=== PATIENT | male | born 1995 | race Caucasian/White ===

== ENCOUNTER → 2018-01-04 | Outpatient (CLI) | payer BC ==
[~2018-01-04] MED LIST: DOXY-252 PO; NYST15CR33 TP; TRIA15OI20 TP
[2018-01-04 14:09] LABS: PLATELET COUNT, AUTOMATED 166 K/uL (150-450)
== END ==
LOC: LAB 13:52
PROVIDERS: ATTEND Nurse Practitioner Primary Care
DX: R10.2 Pelvic and perineal pain (principal)
CPT/HCPCS: 36415; 81001; 82040; 82247; 82310; 82374; 82435; 82565; 82947; 84075; 84132; 84155; 84295; 84450; 84460; 84520; 85025

== ENCOUNTER → 2018-07-22 | Outpatient (CLI) | payer BC ==
[~2018-07-22] MED LIST changes: +PANT40TA65 PO
[2018-07-22 10:16] LABS: PLATELET COUNT, AUTOMATED 181 K/uL (150-450)
[2018-07-22 10:49] LABS: LDL CHOLESTEROL 107 mg/dl
== END ==
LOC: LAB 09:31
PROVIDERS: ATTEND Internal Medicine
DX: Z00.00 Encounter for general adult medical examination without abnormal findings (principal)
CPT/HCPCS: 36415; 81001; 82040; 82247; 82310; 82374; 82435; 82465; 82565; 82947; 83718; 84075; 84132; 84155; 84295; 84443; 84450; 84460; 84478; 84520; 85025

== ENCOUNTER → 2018-07-25 | Outpatient (CLI) | payer BC | LOC: LAB 13:50 | PROVIDERS: ATTEND Internal Medicine | DX: Z00.00 Encounter for general adult medical examination without abnormal findings (principal); R94.5 Abnormal results of liver function studies; K21.9 Gastro-esophageal reflux disease without esophagitis; D75.1 Secondary polycythemia | CPT/HCPCS: 36415; 80074; 81256; 82550; 82668; 82728; 82977; 83540; 83550; 86038; 86677 ==

== ENCOUNTER → 2018-08-10 | Outpatient (CLI) | payer BC ==
--- NOTE | 2018-08-10 09:09 | RADIOLOGY IMAGING REPORT ---
FACILITY: [facility] PATIENT NAME: Mario Blake : 1995 MR: [id number] V: [id number] EXAM DATE: ORDERING PHYSICIAN: TABBY ABEBE TECHNOLOGIST: Location: [facility] - [place] Patient: Mario Blake : 1995 Visit/Account:[id number] Date of Sevice: 08/10/2018 ULTRASOUND ABDOMEN COMPLETE COMPARISON: None. HISTORY: Gastroesophageal reflux disease, elevated liver function tests TECHNIQUE: Chen scale ultrasound of the abdomen was performed. FINDINGS: LIVER: Normal size, 15.4 cm craniocaudally, and morphology with normal homogeneous echotexture. No appreciable masses. A single color Doppler image demonstrates hepatopetal flow in the main portal v ein. GALLBLADDER: Normal size. No gallstones, wall thickening or pericholecystic fluid. Sonographic Mur phy's sign was reportedly negative. BILE DUCTS: No intrahepatic or extrahepatic bile duct dilatation. Common bile duct measures 3 mm. PANCREAS: Normal. KIDNEYS: Normal echogenicity. No mass, obstruction, or obvious calculus. The right kidney measures 11.1 cm bipolar length. Normal right kidney intrarenal resistive index of 0.62. The left kidney damian ures 10.8 cm bipolar length. Normal left kidney intrarenal resistive index of 0.56. SPLEEN: Mildly enlarged, 13.5 cm maximally, with normal homogeneous echotexture. AORTA/VASCULAR: The visualized proximal aorta and IVC are patent. OTHER: No ascites or adenopathy seen. IMPRESSION: Mild splenomegaly. Otherwise normal abdominal ultrasound. Report Dictated By: Stephen Wright at 08/10/2018 8:59 AM Report E-Signed By: Stephen Wright at 08/10/2018 9:04 AM WSN:[id number]
== END ==
LOC: MAMO 01:22
PROVIDERS: ATTEND Internal Medicine
DX: R16.1 Splenomegaly, not elsewhere classified (principal)
CPT/HCPCS: 76700